=== PATIENT | female | born 1970 | race African-American/Black ===

== ENCOUNTER 2020-12-30 15:42 | Emergency (ER) | payer OTHER ==
[~2020-12-30] VITALS: Ht 170.2 cm; Wt 69.0 kg
[2020-12-30 16:29] LABS: ABSOLUTE NEUTROPHILS 1.8 thou/uL (1.4-8.2); BASOPHILS 0.8 % (0.0-2.0); EOSINOPHILS 1.3 % (0.0-3.0); HEMATOCRIT 45.3 % (37.0-47.0); LYMPHOCYTES 55.5 % (24.0-44.0); MCH 31.3 pg (26.0-34.0); MCHC 33.1 g/dL (28.0-37.0); MCV 94.5 fL (80.0-100.0); MONOCYTES 6.5 % (1.0-8.0); PLATELET COUNT 258 thou/uL (150-400); POLYS 35.9 % (36.0-66.0); RDW 13.4 % (10.5-14.5); WBC 4.9 thou/uL (4.0-11.0)
[2020-12-30 17:33] LABS: CALCIUM 9.5 mg/dL (8.5-10.1); CREATININE 1.2 mg/dL (0.6-1.0); POTASSIUM 4.1 mmol/L (3.5-5.1)
[2020-12-30] MEDS ORDERED: MOBIC15 MG PO ×2 (19:03→19:27)
[2020-12-30 19:22] VITALS: BP 147/85
--- NOTE | 2020-12-31 07:22 | EKG ---
[address] [place] [address] ELECTROCARDIOGRAM REPORT Name: ENRRIQUE WILDE Room #: [facility] Myrna#: [id number] Admission: 12/30/20 Attend Phys: Discharge: 12/30/20 Date of : 68 Report #: [id number] [facility] ED Test Date: 2020-12-30 Test Time: 15:51:49 Pat Name: ENRRIQUE WILDE Department: Room: Gender: F [employer]om Cat Operator: GURDEEP : 1970 Requested By: Mechelle Sanders Order Number: [id number] MD: William Dailey Measurements Intervals Spencer Rate: 73 P: 63 MS: 158 QRS: 6 QRSD: 85 T: 26 QT: 428 QTc: 472 Interpretive Statements Sinus rhythm Nonspecific ST segment abnormality No previous ECG available for comparison Electronically Signed On 12-31-2020 7:22:28 [employer]GEON by William Dailey [email or web address] <ELECTRONICALLY SIGNED> By: William Dailey MD, [facility] 12/31/20 0722 1551 1551 William Dailey MD, FACC /EPI
== END 2020-12-30 19:22 | disposition home or self-care (01) ==
LOC: ER 15:42
PROVIDERS: Emergency Medicine
DX: R07.89 Other chest pain (principal); R51.9 Headache, unspecified; I10 Essential (primary) hypertension; F17.210 Nicotine dependence, cigarettes, uncomplicated; Z90.710 Acquired absence of both cervix and uterus; Z88.6 Allergy status to analgesic agent; Z91.040 Latex allergy status